=== PATIENT | male | born 1945 | race Caucasian/White ===

== ENCOUNTER 2016-09-29 07:01 | Day surgery (SDC) | payer MEDICARE, OTHER ==
[~2016-09-29] VITALS: Ht 182.9 cm; Wt 126.6 kg
[~2016-09-29 07:01] MED LIST: ALLER-FEX180 MG PO; ASPIR 8181 MG PO; ASPIRIN81 MG PO; COZAAR100 MG PO; COZAAR50 MG PO; DUREZOL5 ML EYERT; ELIQUIS5 MG PO; FISH OIL1 GM PO; FLAX SEED OIL1000 MG PO; INDERAL LA60 MG PO; INDERAL10 MG PO; K-TAB ER10 MEQ PO; LASIX40 MG PO; LIPITOR40 M1 PO; NITROSTAT0.4 MG SL; OCUFLOX EARBOTH; OCUFLOX EYELF; SIMBRINZA 1%-0.28 ML EYELF; TAMBOCOR50 MG PO; TERAZOSIN HCL10 MG PO; TRAVATAN Z2.5 ML EYEBOTH; VITAMIN C1000 MG PO; VITAMIN C500 M1 PO; VITAMIN D1000 UNI1 PO; VITAMIN D31000 UNI1 PO; XALATAN 0.005%2.5 ML EYELF
== END 2016-09-29 12:50 | disposition short-term general hospital (02) ==
LOC: SURGOP 07:01
PROC: 01N50ZZ Release Median Nerve, Open Approach (ICD-10-PCS; principal; 2016-09-29)
PROC: 01N40ZZ Release Ulnar Nerve, Open Approach (ICD-10-PCS; 2016-09-29)
DX: G56.01 Carpal tunnel syndrome, right upper limb (principal); G56.21 Lesion of ulnar nerve, right upper limb; D64.9 Anemia, unspecified; J45.909 Unspecified asthma, uncomplicated; I48.91 Unspecified atrial fibrillation; N40.0 Benign prostatic hyperplasia without lower urinary tract symptoms; E78.5 Hyperlipidemia, unspecified; H40.9 Unspecified glaucoma; I10 Essential (primary) hypertension; E29.1 Testicular hypofunction; G47.00 Insomnia, unspecified; E66.9 Obesity, unspecified; Z86.14 Personal history of Methicillin resistant Staphylococcus aureus infection; Z86.010 Personal history of colon polyps
CPT/HCPCS: J0330; J0690; J2250; J3010

== ENCOUNTER → 2016-11-10 | Outpatient (CLI) | payer MEDICARE, OTHER | END | disposition short-term general hospital (02) | LOC: CLORTH 11:41 | DX: Z47.89 Encounter for other orthopedic aftercare (principal); Z98.890 Other specified postprocedural states ==

== ENCOUNTER → 2016-11-22 | Outpatient (CLI) | payer MEDICARE, OTHER | END | disposition short-term general hospital (02) | LOC: CLCARD 11-15 10:05 | DX: R07.9 Chest pain, unspecified (principal); I49.9 Cardiac arrhythmia, unspecified ==